=== PATIENT | male | born 2000 | race Caucasian/White ===

== ENCOUNTER 2019-05-15 21:11 | Emergency (ER) | payer OTHER ==
[~2019-05-15] VITALS: Ht 167.6 cm; Wt 56.8 kg
[2019-05-15 22:55] VITALS: BP 105/58
--- NOTE | 2019-05-16 10:13 | REP ---
Right great toe series: Four views. History: Trauma. Findings: Four views of the right great toe show a subtle cortical irregularity along the dorsal lateral aspect of the proximal phalanx at the IP joint which may be a nondisplaced chip fracture. There is some soft tissue swelling. No other fractures seen. Impression: Probable chip fracture at the base of the distal phalanx of the great toe at the IP joint on its lateral side. Electronically Signed by Roberto Blanc MD 05/16/2019 10:05 A
--- NOTE | 2019-05-20 20:28 | ED PDOC ---
Post-Departure Follow-Up instructed ed battery recharger to call pt, review right toe film, recommend jacob tape, fu w jer hood. report faxed to jer hood .Timmy Cameron MD May 20, 2019 20:28
== END 2019-05-15 23:08 | disposition home or self-care (01) ==
LOC: M ED 21:11
DX: S90.111A Contusion of right great toe without damage to nail, initial encounter (principal); W22.8XXA Striking against or struck by other objects, initial encounter; Y92.018 Other place in single-family (private) house as the place of occurrence of the external cause